=== PATIENT | male | born 1945 | race Caucasian/White ===

== ENCOUNTER → 2017-07-07 | Outpatient (CLI) | payer MEDICARE, OTHER ==
--- NOTE | 2017-07-07 16:55 | US ---
EXAMINATION TYPE: US abdomen limited DATE OF EXAM: 07/07/2017 COMPARISON: US 2009 CLINICAL HISTORY: R10.9 Abd pain. Right abdominal pain x years; prior trauma to abdomen from 70 ton [place] 1995; umbilical hernia repair; HT 5'5 and WT 233lbs EXAM MEASUREMENTS: Liver Length: 15.0 cm Gallbladder Wall: 0.2 cm CBD: 0.4 cm Right Kidney: 10.3 x 6.1 x 5.2 cm Pancreas: Tail obscured by overlying bowel gas Liver: fatty as is hyperechoic to right renal cortex Gallbladder: wnl Evidence for sonographic Beltran's sign: No CBD: wnl Right Kidney: No hydronephrosis or masses seen Aorta Upper: size is at upper limits of normal, but still < 3.0cm. IMPRESSION: 1. Unremarkable right upper quadrant abdomen ultrasound
== END | disposition home or self-care (01) ==
LOC: RADUSWWP 08:11
PROVIDERS: ATTEND Pediatrics
DX: R10.9 Unspecified abdominal pain (principal)
CPT/HCPCS: 76705

== ENCOUNTER → 2018-03-30 | Outpatient (CLI) | payer MEDICARE, OTHER ==
--- NOTE | 2018-03-30 14:25 | XR ---
EXAMINATION TYPE: XR shoulder complete LT DATE OF EXAM: 03/30/2018 COMPARISON: NONE HISTORY: Pain x1 week TECHNIQUE: Shoulder examined in 3 FINDINGS: The humeral head articulates with the glenoid. The acromio-clavicular junction is normal. No acute fractures or dislocations are evident. A follow up study can be performed 7-10 days from acute trauma for continued pain. IMPRESSION: 1. Normal Shoulder
== END | disposition home or self-care (01) ==
LOC: RADXRMAIN 11:48
PROVIDERS: ATTEND Pediatrics
DX: M25.512 Pain in left shoulder (principal)

== ENCOUNTER 2019-11-30 22:24 | Emergency (ER) | payer MEDICARE ==
[2019-11-30 22:30] VITALS: TEMP 98.8
--- NOTE | 2019-11-30 22:42 | ED ---
General Adult HPI - General Chief complaint: Neuro Symptoms/Deficit Stated complaint: Arm Numbness Time Seen by Provider: 11/30/19 22:33 Source: patient Mode of arrival: ambulatory Limitations: no limitations - History of Present Illness Initial comments: Dictation was produced using [employer] dictation software. please excuse any grammatical, word or spelling errors. This patient was cared for during a federal and state declared state of emergency secondary to Covid 19 Chief Complaint: 74-year-old male past medical history of hypertension dyslipidemia presents with left arm numbness. History of Present Illness: 74-year-old male who has past medical history of dyslipidemia and hypertension. He states that he's been having intermittent episodes of left arm numbness. He states that these episodes would occur after exerting his left upper extremity. He states that most recently he noted that his left hand and left upper extremity went completely numb after helping his friend move furniture. Patient states that he notices that it occurs intermittently whenever he uses arm. Patient denies any history of stroke. Patient reports that he does begin belching which would alleviate his symptoms. He has no history of peripheral vascular disease or stroke. Denies any weakness. Denies any difficulty ambulating. The ROS documented in this emergency department record has been reviewed and confirmed by me. Those systems with pertinent positive or negative responses have been documented in the HPI. All other systems are other negative and/or noncontributory. PHYSICAL EXAM: General Impression: Alert and oriented x3, not in acute distress HEENT: Normocephalic atraumatic, extra-ocular movements intact, pupils equal and reactive to light bilaterally, mucous membranes moist. Cardiovascular: Heart regular rate and rhythm, S1&S2 audible, no murmurs, rubs or gallops Chest: Lungs clear to auscultation bilaterally, no rhonchi, no wheeze, no rales Abdomen: Bowel sounds present, abdomen soft, non-tender, non-distended, no organomegaly Musculoskeletal: Pulses present and equal in all extremities, no peripheral edema Motor: no focal deficits noted Neurological: CN II-XII grossly intact, no focal motor or sensory deficits noted, NIH of 0 Skin: Intact with no visualized rashes Psych: Normal affect and mood ED course: 74-year-old male with past medical history of hypertension dyslipidemia presents with left arm numbness. Signs upon arrival are within acceptable limits.Computed tomography scan the brain is unremarkable. CT angios the chest is negative. CT angios the head and neck shows no acute processes. Acute abdominal series shows no acute processes. Chest x-ray is nonacute. Laboratory evaluation obtained. CBC, coag panel, metabolic panel is unremarkable. Patient reevaluated at bedside and found to be in stable medical condition. This point is unclear what is causing patient's symptoms. Given his comorbidities and his body habitus. He seems like patient that would suffer from peripheral vascular disease. More history was obtained from was at bedside. She states that she was concerned he was having a stroke. Considering the chronicity of his symptoms and that they've been ongoing for approximately 3 weeks intermittently believe that discharge is a reasonable disposition. Patient offered inpatient admission for further workup however considering we are currently in a endemic disaster situation is a state patient requested to be discharged. Patient given aspirin and Lipitor. He is told to follow up immediately with his primary care physician and to have further outpatient workup. Return parameters was discussed. Patient will be discharged. EKG interpretation: Ventricular rate 83, sinus rhythm, AL interval 140, QRS 82, QTC 420. No AL prolongation, no QTC prolongation, no ST or T-wave changes noted. No old EKG for comparison. Overall, this EKG is unremarkable - Related Data Home Medications Medication Instructions Recorded Confirmed Lisinopril-Hctz 10-12.5 mg 1 tab PO DAILY 11/30/19 11/30/19 [Zestoretic 10-12.5] Montelukast [Singulair] PO DAILY 11/30/19 Allergies Allergy/AdvReac Type Severity Reaction Status Date / Time No Known Allergies Allergy Verified 11/30/19 22:31 Review of Systems ROS Statement: Those systems with pertinent positive or pertinent negative responses have been documented in the HPI. ROS Other: All systems not noted in ROS Statement are negative. Past Medical History Past Medical History: Hyperlipidemia, Hypertension Additional Past Medical History / Comment(s): sinus problems, History of Any Multi-Drug Resistant Organisms: None Reported Past Surgical History: Hernia Repair Past Psychological History: No Psychological Hx Reported Smoking Status: Former smoker Past Alcohol Use History: None Reported Past Drug Use History: None Reported General Exam Limitations: no limitations Course Vital Signs 11/30/19 22:24 Temperature 98.8 F Pulse Rate 89 Respiratory 18 Rate Blood Pressure 133/62 O2 Sat by Pulse 96 Oximetry Medical Decision Making - Lab Data Result diagrams: 11/30/19 22:45 11/30/19 22:45 Lab Results 11/30/19 11/30/19 11/30/19 Range/Units 22:45 22:45 22:45 WBC 9.8 (3.8-10.6) k/uL RBC 5.21 (4.30-5.90) m/uL Hgb 16.0 (13.0-17.5) gm/dL Hct 46.9 (39.0-53.0) % MCV 90.1 (80.0-100.0) fL MCH 30.8 (25.0-35.0) pg MCHC 34.1 (31.0-37.0) g/dL RDW 12.8 (11.5-15.5) % Plt Count 266 (150-450) k/uL Neutrophils % 61 % Lymphocytes % 26 % Monocytes % 8 % Eosinophils % 3 % Basophils % 1 % Neutrophils # 6.0 (1.3-7.7) k/uL Lymphocytes # 2.5 (1.0-4.8) k/uL Monocytes # 0.8 (0-1.0) k/uL Eosinophils # 0.3 (0-0.7) k/uL Basophils # 0.1 (0-0.2) k/uL PT 9.6 (9.0-12.0) sec INR 0.9 (<1.2) APTT 23.5 (22.0-30.0) sec Sodium 137 (137-145) mmol/L Potassium 3.9 (3.5-5.1) mmol/L Chloride 106 (98-107) mmol/L Carbon Dioxide 24 (22-30) mmol/L Anion Gap 7 mmol/L BUN 23 H (9-20) mg/dL Creatinine 1.29 H (0.66-1.25) mg/dL Est GFR (CKD-EPI)AfAm 63 (>60 ml/min/1.73 sqM) Est GFR (CKD-EPI)NonAf 54 (>60 ml/min/1.73 sqM) Glucose 116 H (74-99) mg/dL Calcium 9.5 (8.4-10.2) mg/dL Magnesium 2.2 (1.6-2.3) mg/dL Disposition Clinical Impression: Arm numbness Disposition: HOME SELF-CARE Condition: Fair Instructions (If sedation given, give patient instructions): Stroke (DC) Additional Instructions: Today you are evaluated for strokelike symptoms. You had labs, CT of the brain, contrasted CT of the brain showing no obvious abnormalities. It is suggested to you to follow-up with her primary care physician as soon as possible for outpatient workup. Please understand that stroke only be ruled out with more advanced imaging thank you a likely candidate for outpatient. Please return to the emergency department or seek emergent medical care should you have a recurrence of the symptoms. Is patient prescribed a controlled substance at d/c from ED?: No Referrals: Javier Correa DO [Primary Care Provider] - 1-2 days Time of Disposition: 00:15
[2019-11-30 22:55] LABS: Basophils # (A) 0.1 k/uL (0-0.2); Basophils % (A) 1 %; Eosinophils # (A) 0.3 k/uL (0-0.7); Eosinophils % (A) 3 %; HCT 46.9 % (39.0-53.0); Lymphocytes # (A) 2.5 k/uL (1.0-4.8); Lymphocytes % (A) 26 %; MCH 30.8 pg (25.0-35.0); MCHC 34.1 g/dL (31.0-37.0); MCV 90.1 fL (80.0-100.0); Mean Platelet Volume 7.5; Monocytes # (A) 0.8 k/uL (0-1.0); Monocytes % (A) 8 %; Neutrophils % (A) 61 %; Platelet Count 266 k/uL (150-450); RBC 5.21 m/uL (4.30-5.90); RDW 12.8 % (11.5-15.5); WBC 9.8 k/uL (3.8-10.6)
[2019-11-30 23:09] LABS: Calcium 9.5 mg/dL (8.4-10.2); INR 0.9 (<1.2); Magnesium 2.2 mg/dL (1.6-2.3); Potassium 3.9 mmol/L (3.5-5.1)
[2019-11-30 23:10] LABS: Partial Thromboplastin Time 23.5 sec (22.0-30.0); Prothrombin Time 9.6 sec (9.0-12.0)
[2019-11-30] MEDS ORDERED: SODIUM CHLORIDE 0.9% 1,000 ML IV STA (23:10)
--- NOTE | 2019-11-30 23:51 | CT ---
EXAMINATION TYPE: CT brain wo con DATE OF EXAM: 11/30/2019 COMPARISON: None HISTORY: Arm numbness. CT DLP: 1095.4 mGycm Automated exposure control for dose reduction was used. There is some cerebral cortical atrophy. There is no mass effect nor midline shift. There is no sign of intracranial hemorrhage. The calvarium is intact. IMPRESSION: Cerebral atrophy. No acute intracranial abnormality.
--- NOTE | 2019-11-30 23:52 | XR ---
EXAMINATION TYPE: XR abdomen acute w cxr DATE OF EXAM: 11/30/2019 COMPARISON: 01/17/2012 HISTORY: Left arm numbness. Bulging. TECHNIQUE: 4 views FINDINGS: Heart and mediastinum are normal. Lungs are clear. Diaphragm is normal. Bony thorax appears normal. Bowel gas pattern is normal. There is no sign of intestinal obstruction or pneumoperitoneum. There ar e no pathologic calcifications over the kidneys. There are phleboliths in the pelvis. There is no duyen dence of a mass. IMPRESSION: Normal chest. Nonacute abdomen.
--- NOTE | 2019-12-01 00:02 | CT ---
EXAMINATION TYPE: CT angio head neck DATE OF EXAM: 11/30/2019 COMPARISON: None HISTORY: LUE numbness CT DLP: 709.4 mGycm Automated exposure control for dose reduction was used. CONTRAST: Performed with IV Contrast, patient injected with 65 mL of Isovue 370. Images were obtained from the aortic arch to the vertex of the brain with intravenous contrast. There are 3-D post processed images. There is normal branching pattern of the great vessels on the aortic arch. There is bilateral arteria l flow in the subclavian arteries. Ascending aorta measures 3.7 cm. There is no evidence of dissectio n. There is normal contrast opacification of the carotid and vertebral arteries. There is no evidence of carotid or vertebral artery aneurysm or dissection. There is wide patency of the carotid artery bifu rcations. There is arterial flow in the vertebrobasilar artery system. There is arterial flow in the anterior middle and posterior cerebral arteries. I see no sign of intra cranial aneurysm or neovascularity. There is no mass effect. There is normal contrast opacification o f the venous sinuses. IMPRESSION: Negative CT angiogram of the neck. Negative CT angiogram of the brain.
[2019-12-01] MEDS ORDERED: ASPIRIN 81 MG PO STA (00:05)
[2019-12-01] MEDS ORDERED: ATORVASTATIN 40 MG TAB PO STA (00:05)
--- NOTE | 2019-12-01 00:07 | CT ---
EXAMINATION TYPE: CT angio chest DATE OF EXAM: 11/30/2019 COMPARISON: HISTORY: LUE numbness CT DLP: 1057.3 mGycm Automated exposure control for dose reduction was used. CONTRAST: Performed with IV Contrast, patient injected with 60 mL of Isovue 370. There are 3-D post processed images. Thoracic aorta is intact. There is no aneurysm or dissection. The ascending aorta measures 3.7 cm. Th ere is no mediastinal adenopathy. There are no hilar masses. There is normal contrast opacification o f the pulmonary arteries. There are no filling defects. The lungs are clear of consolidation. There is no evidence of a pulmonary mass. There is no pleural e ffusion. There is no pericardial effusion. Heart size is normal. Upper abdominal soft tissues appear intact. The bony thorax appears intact. IMPRESSION: Negative exam. No evidence of pulmonary embolism.
[2019-12-01 00:33] VITALS: BP 133/76; PULSE 77; RESP 16
== END 2019-12-01 00:33 | disposition home or self-care (01) ==
LOC: EC 22:24
DX: R20.0 Anesthesia of skin (principal); I10 Essential (primary) hypertension; Z87.891 Personal history of nicotine dependence; Z79.899 Other long term (current) drug therapy; Z87.09 Personal history of other diseases of the respiratory system
CPT/HCPCS: 36415; 93005; 80048; 83735; 84484; 85025; 85610; 85730; 74022; 70496; 70450; 70498; 71275; 99284; Q9967

== ENCOUNTER 2019-12-24 04:45 | Inpatient (IN) | payer MEDICARE ==
[2019-12-24 05:17] LABS: Basophils # (A) 0.1 k/uL (0-0.2); Basophils % (A) 1 %; Eosinophils # (A) 0.2 k/uL (0-0.7); Eosinophils % (A) 3 %; HCT 45.5 % (39.0-53.0); HGB 15.5 gm/dL (13.0-17.5); Lymphocytes # (A) 1.7 k/uL (1.0-4.8); Lymphocytes % (A) 18 %; MCH 31.3 pg (25.0-35.0); MCHC 34.2 g/dL (31.0-37.0); MCV 91.8 fL (80.0-100.0); Mean Platelet Volume 7.8; Monocytes # (A) 0.5 k/uL (0-1.0); Monocytes % (A) 5 %; Neutrophils # (A) 6.6 k/uL (1.3-7.7); Neutrophils % (A) 72 %; Platelet Count 242 k/uL (150-450); RBC 4.95 m/uL (4.30-5.90); RDW 12.9 % (11.5-15.5); WBC 9.2 k/uL (3.8-10.6)
[2019-12-24 05:29] LABS: Albumin 3.8 g/dL (3.5-5.0); Calcium 9.3 mg/dL (8.4-10.2); Magnesium 2.1 mg/dL (1.6-2.3); Potassium 4.2 mmol/L (3.5-5.1); Total Bilirubin 0.3 mg/dL (0.2-1.3); Total Protein 6.5 g/dL (6.3-8.2)
--- NOTE | 2019-12-24 05:29 | XR ---
EXAMINATION TYPE: XR chest 2V DATE OF EXAM: 12/24/2019 COMPARISON: 11/30/2019 HISTORY: Left arm numbness. Chest pain TECHNIQUE: FINDINGS: Heart and mediastinum are normal. Lungs are clear of infiltrate. Costophrenic angles are cl ear. There are probably calcified granulomata at the pulmonary comfort. There is no pleural effusion. Yvon ny thorax is intact. IMPRESSION: No active cardiopulmonary disease. Normal heart. No change.
[2019-12-24 05:40] LABS: INR 0.9 (<1.2); Prothrombin Time 9.5 sec (9.0-12.0)
[2019-12-24 05:43] LABS: Partial Thromboplastin Time 19.7 sec (22.0-30.0)
[2019-12-24] MEDS ORDERED: HEPARIN SODIUM,PORCINE 5,000 UNIT/ML 1 ML VIAL IV PRN (06:10)
[2019-12-24] MEDS ORDERED: HEPARIN SODIUM,PORCINE 5,000 UNIT/ML 1 ML VIAL IV ONE (06:10)
--- NOTE | 2019-12-24 06:15 | ED ---
Chest Pain HPI - General Chief Complaint: Chest Pain Stated Complaint: CHEST PAIN Source: patient, EMS Mode of arrival: EMS Limitations: no limitations - History of Present Illness Initial Comments: The patient is a 74-year-old male past history of hypertension who presents to the emergency room with reported chest pain. He states he awoke from sleep at 3 AM with pain located over the right side of his chest. He states that it was crushing chest pain, graded 10 out of 10. He had associated diaphoresis and nausea. He also had significant gas with belching. The pain radiated to his right neck and right shoulder. He went to the bathroom to have a bowel movement and the pain improved. His did call EMS. They did provide him with 4 chewable aspirins, 1 sublingual nitro and 4 of Zofran. The patient reports to complete improvement by the time he arrives to the emergency department. He has no previous cardiac history. Has never had stress testing performed. Denies cough, fevers or chills. No hemoptysis. No numbness or tingling in his extremities. Denies any abdominal pain or changes in bowel or bladder habits. There are no other alleviating, precipitating or modifying factors - Related Data Home Medications Medication Instructions Recorded Confirmed Lisinopril-Hctz 10-12.5 mg 1 tab PO DAILY 11/30/19 11/30/19 [Zestoretic 10-12.5] Montelukast [Singulair] PO DAILY 11/30/19 Allergies Allergy/AdvReac Type Severity Reaction Status Date / Time No Known Allergies Allergy Verified 11/30/19 22:31 Review of Systems ROS Statement: Those systems with pertinent positive or pertinent negative responses have been documented in the HPI. ROS Other: All systems not noted in ROS Statement are negative. EKG Findings - EKG Comments: EKG Findings:: EKG demonstrates normal sinus rhythm with a ventricular rate of 60. VA interval 162. QRS 86. QTC 406. Low voltage. No acute ST segment elevations or depressions. Past Medical History Past Medical History: Hyperlipidemia, Hypertension Additional Past Medical History / Comment(s): sinus problems, History of Any Multi-Drug Resistant Organisms: None Reported Past Surgical History: Hernia Repair Past Psychological History: No Psychological Hx Reported Smoking Status: Former smoker Past Alcohol Use History: Rare Past Drug Use History: None Reported General Exam Limitations: no limitations Course Vital Signs 12/24/19 05:04 Temperature 97.6 F Pulse Rate 67 Respiratory 20 Rate Blood Pressure 142/89 O2 Sat by Pulse 97 Oximetry Chest Pain MDM - MDM Upon arrival the patient was placed into room 1. A thorough history and physical exam was performed. Laboratory studies were conducted. The EKG was performed which demonstrates no acute ST segment elevation. Patient is pain- free at this time. Laboratory studies demonstrate a glucose of 132. Troponin is 0.063. Carotid virus is not detected. Chest x-ray demonstrates no active cardio primary disease. I did review the patient's record and he has had a CT angiography of his chest which was done at the beginning of this month. I did discuss results of the patient. I did recommend heparinizing imports the patient did agree. Patient has no contraindications. The patient will be admitted to [facility]. I will consult cardiology. Patient is made nothing by mouth. He continues to remain pain-free and will be transferred to the floor in stable condition Disposition Clinical Impression: Acute non-ST elevation myocardial infarction (NSTEMI), Chest pain Disposition: ADMITTED IP TO THIS HOSP Condition: Stable Is patient prescribed a controlled substance at d/c from ED?: No Referrals: Javier Correa DO [Primary Care Provider] - 1-2 days Decision to Admit Reason: Admit from EC Decision Date: 12/24/19 Decision Time: 06:21
[2019-12-24] MEDS ORDERED: NALOXONE 0.4 MG/ML 1 ML VIAL IV PRN (06:22)
[2019-12-24] MEDS: HEPARIN SOD,PORK IN 0.45% NACL 25,000 UNIT in 0.45% NACL 1 250ML.BAG IV SCH (06:59)
[2019-12-24] MEDS ORDERED: ATORVASTATIN 80 MG TAB PO SCH (09:00)
--- NOTE | 2019-12-24 10:00 | ECHOF ---
Referral Reason:chest pain, elevated troponin MEASUREMENTS -------- HEIGHT: 165.1 cm WEIGHT: 104.3 kg BP: IVSd: 0.9 cm (0.6 - 1.1) LVIDd: 3.7 cm (3.9 - 5.3) LVPWd: 0.8 cm (0.6 - 1.1) IVSs: 0.9 cm LVIDs: 3.1 cm LVPWs: 0.8 cm Ao Diam: 2.8 cm (2.0 - 3.7) AV Cusp: 1.9 cm (1.5 - 2.6) LA Diam: 3.5 cm (2.7 - 3.8) MV EXCURSION: 10.065 mm (> 18.000) MV EF SLOPE: 110 mm/s (70 - 150) EPSS: 0.8 cm MV E Denis: 0.68 m/s MV DecT: 173 ms MV A Denis: 0.77 m/s MV E/A Ratio: 0.88 RAP: 5.00 mmHg RVSP: 12.51 mmHg FINDINGS -------- Sinus rhythm. This was a technically difficult study with suboptimal views. The left ventricular size is normal. Left ventricular wall thickness is normal. Overall left vent ricular systolic function is moderately impaired with, an EF between 35 - 40 %. Apical anterior LV wall motion is hypokinetic. Apical lateral LV wall motion is hypokinetic. Apical inferior LV wa ll motion is hypokinetic. Apical septum LV wall motion is hypokinetic. The right ventricle is normal in size. The left atrial size is normal. The right atrial size is normal. Lumason used The aortic valve is trileaflet and appears structurally normal. The mitral valve is normal. There is trace mitral regurgitation. The tricuspid valve appears structurally normal. Trace tricuspid regurgitation present. Right allan tricular systolic pressure is normal at < 35 mmHg. The pulmonic valve is normal. The aortic root size is normal. IVC Not well visulized. There is no pericardial effusion. CONCLUSIONS -------- 1. Sinus rhythm. 2. This was a technically difficult study with suboptimal views. 3. The left ventricular size is normal. 4. Left ventricular wall thickness is normal. 5. Overall left ventricular systolic function is moderately impaired with, an EF between 35 - 40 %. 6. Apical anterior LV wall motion is hypokinetic. 7. Apical lateral LV wall motion is hypokinetic. 8. Apical inferior LV wall motion is hypokinetic. 9. Apical septum LV wall motion is hypokinetic. 10. The right ventricle is normal in size. 11. The left atrial size is normal. 12. The right atrial size is normal. 13. Lumason used 14. The aortic valve is trileaflet and appears structurally normal. 15. The mitral valve is normal. 16. There is trace mitral regurgitation. 17. The tricuspid valve appears structurally normal. 18. Trace tricuspid regurgitation present. 19. Right ventricular systolic pressure is normal at < 35 mmHg. 20. The pulmonic valve is normal. 21. The aortic root size is normal. 22. IVC Not well visulized. 23. There is no pericardial effusion. [employer]: Zoe Gracia RDCS
[2019-12-24] MEDS ORDERED: NITROGLYCERIN SL TABS 0.4 MG TAB SUBLINGUAL PRN (10:15)
[2019-12-24] MEDS ORDERED: SODIUM CHLORIDE 0.9% 1,000 ML in EMPTY BAG 1 BAG IV ONE (10:15)
[2019-12-24] MEDS ORDERED: ALPRAZolam 0.5 MG TAB PO PRN (10:15)
[2019-12-24] MEDS ORDERED: ALPRAZolam 0.25 MG TAB PO PRN (10:15)
[2019-12-24] MEDS ORDERED: ATORVASTATIN 80 MG TAB PO STA (10:15)
[2019-12-24] MEDS ORDERED: ATORVASTATIN 80 MG TAB ONE (10:55)
[2019-12-24] MEDS ORDERED: METOPROLOL TARTRATE 12.5 MG TAB ONE (10:55)
[2019-12-24] MEDS ORDERED: ASPIRIN 81 MG ONE (10:55)
[2019-12-24] MEDS: ASPIRIN 81 MG PO SCH (11:10)
[2019-12-24] MEDS ORDERED: METOPROLOL TARTRATE 25 MG TAB ONE (11:13)
[2019-12-24] MEDS: METOPROLOL TARTRATE 25 MG TAB PO SCH ×2 (11:15→19:25)
--- NOTE | 2019-12-24 12:12 | P.HPIM ---
History of Present Illness 74-year-old pleasant gentleman with severe (aspirin 2 history of coronary artery disease came in with compensative chest been on the right side of the chest radiating to the jaw pressure-like sensation, 10/10 severity improves with b elching associated with shortness of breath lightheadedness as well as diaphoresis improved with sublingual nitroglycerin nonexertional chest pain not associated with food nonpleuritic in nature crushing and pressure-like chest pain never had any cardiac workup in the past denied any cough nausea vomiting. Patient does have history of gastroesophageal reflux disease his. Pain is not consistent with that patient denied any fever chills chest x-ray did not show any pneumonia EKG low voltage patient had mildly elevated troponin first one my echocardiogram showed apical anterior hypokinesis and apical lateral wall hypokinesis apical inferior hypokinesis with a decreased EF of 35-40% Review of Systems REVIEW OF SYSTEMS: CONSTITUTIONAL: No fever, no malaise, no fatigue. HEENT: No recent visual problems or hearing problems. Denied any sore throat. CARDIOVASCULAR: As mentioned in HPI PULMONARY: no cough, no hemoptysis. GASTROINTESTINAL: No diarrhea, no nausea, no vomiting, no abdominal pain. NEUROLOGICAL: No headaches, no weakness, no numbness. HEMATOLOGICAL: Denies any bleeding or petechiae. GENITOURINARY: Denies any burning micturition, frequency, or urgency. MUSCULOSKELETAL/RHEUMATOLOGICAL: Denies any joint pain, swelling, or any muscle pain. ENDOCRINE: Denies any polyuria or polydipsia. The rest of the 14-point review of systems is negative. Past Medical History Past Medical History: Hyperlipidemia, Hypertension Additional Past Medical History / Comment(s): sinus problems, History of Any Multi-Drug Resistant Organisms: None Reported Past Surgical History: Hernia Repair Past Psychological History: No Psychological Hx Reported Smoking Status: Former smoker Additional Past Alcohol Use History / Comment(s): Patient states that he qui9t smoking arounf 1966, he states an occasional beer with dinner. Patient lives with spouse and grandchildren Past Drug Use History: None Reported - Past Family History Father Family Medical History: Myocardial Infarction (DC) Mother Family Medical History: Cancer Medications and Allergies Home Medications Medication Instructions Recorded Confirmed Type Lisinopril-Hctz 10-12.5 mg 1 tab PO DAILY 11/30/19 12/24/19 History [Zestoretic 10-12.5] Montelukast [Singulair] 10 mg PO DAILY 11/30/19 12/24/19 History Multivitamins, Thera [Multivitamin 1 tab PO DAILY 12/24/19 12/24/19 History (formulary)] Kaufman-3 Fatty Acids/Fish Oil [Fish 1 cap PO DAILY 12/24/19 12/24/19 History Oil 1,000 mg Softgel] Allergies Allergy/AdvReac Type Severity Reaction Status Date / Time No Known Allergies Allergy Verified 12/24/19 07:25 Physical Exam Vitals: Vital Signs Temp Pulse Pulse Resp BP BP Pulse Ox 12/24/19 08:00 97.8 F 74 16 144/96 99 12/24/19 07:02 97.5 F L 68 19 138/97 97 12/24/19 05:04 97.6 F 67 20 142/89 97 Intake and Output 12/23/19 12/24/19 12/24/19 22:59 06:59 14:59 Intake Total 240 Balance 240 Intake: IV 240 .9 @ 20 240 Other: Weight 104.326 kg 104.326 kg PHYSICAL EXAMINATION: GENERAL: The patient is alert and oriented x3, not in any acute distress. Well developed, well nourished. HEENT: Pupils are round and equally reacting to light. EOMI. No scleral icterus. No conjunctival pallor. Normocephalic, atraumatic. No pharyngeal erythema. No thyromegaly. CARDIOVASCULAR: S1 and S2 present. No murmurs, rubs, or gallops. PULMONARY: Chest is clear to auscultation, no wheezing or crackles. ABDOMEN: Soft, nontender, nondistended, normoactive bowel sounds. No palpable organomegaly. MUSCULOSKELETAL: No joint swelling or deformity. EXTREMITIES: No cyanosis, clubbing, or pedal edema. NEUROLOGICAL: Gross neurological examination did not reveal any focal deficits. SKIN: No rashes. Results CBC & Chem 7: 12/24/19 05:00 12/24/19 05:00 Labs: Abnormal Lab Results - Last 24 Hours (Table) 12/24/19 12/24/19 12/24/19 Range/Units 05:00 05:00 05:00 APTT 19.7 L (22.0-30.0) sec Chloride 109 H (98-107) mmol/L BUN 25 H (9-20) mg/dL Glucose 132 H (74-99) mg/dL Troponin I 0.063 H* (0.000-0.034) ng/mL Thrombosis Risk Factor Assmnt - Choose All That Apply Any of the Below Risk Factors Present?: Yes Each Factor Represents 1 point: Obesity (BMI >25) Other Risk Factors: Yes Each Risk Factor Represents 2 Points: Age 61-74 years Other congenital or acquired thrombophilia - If yes, enter type in comment: No Thrombosis Risk Factor Assessment Total Risk Factor Score: 3 Thrombosis Risk Factor Assessment Level: Moderate Risk Assessment and Plan Plan: -Possible non-ST elevation myocardial infarction: Continue with IV heparin patient undergo cardiac catheterization tomorrow patient probably has involvement of left anterior descending. -Acute systolic dysfunction from possible acute myocardial infarction patient is not in heart failure exacerbation at this time, patient appears to be fairly euvolemic by his GALEN inhibitor will be resumed -Hyperlipidemia -Hypertension -Obesity patient will benefit from outpatient sleep study
[2019-12-24] MEDS: LISINOPRIL 10 MG TAB PO SCH (17:27)
[2019-12-24 23:07] LABS: Hemoglobin A1C 5.6 % (4.0-6.0)
[2019-12-25 06:52] LABS: Basophils # (A) 0.1 k/uL (0-0.2); Basophils % (A) 1 %; Eosinophils # (A) 0.2 k/uL (0-0.7); Eosinophils % (A) 2 %; HCT 44.5 % (39.0-53.0); HGB 14.5 gm/dL (13.0-17.5); Lymphocytes # (A) 1.6 k/uL (1.0-4.8); Lymphocytes % (A) 18 %; MCHC 32.7 g/dL (31.0-37.0); Mean Platelet Volume 7.5; Monocytes # (A) 0.6 k/uL (0-1.0); Monocytes % (A) 7 %; Neutrophils # (A) 6.1 k/uL (1.3-7.7); Neutrophils % (A) 71 %; Platelet Count 198 k/uL (150-450); RBC 4.69 m/uL (4.30-5.90); RDW 13.2 % (11.5-15.5); WBC 8.5 k/uL (3.8-10.6)
[2019-12-25 07:06] LABS: Partial Thromboplastin Time 27.1 sec (22.0-30.0)
[2019-12-25] MEDS: LISINOPRIL 10 MG TAB PO SCH (07:10)
[2019-12-25] MEDS: ATORVASTATIN 80 MG TAB PO SCH (07:10)
[2019-12-25] MEDS: METOPROLOL TARTRATE 25 MG TAB PO SCH ×2 (07:11→21:01)
[2019-12-25] MEDS: ASPIRIN 81 MG PO SCH (07:11)
[2019-12-25 07:17] LABS: Calcium 9.2 mg/dL (8.4-10.2); Potassium 5.1 mmol/L (3.5-5.1)
[2019-12-25] MEDS ORDERED: LIDOCAINE 1% INJ 10MG/ML (20 ML MDV) ONE (07:20)
[2019-12-25] MEDS ORDERED: VERAPAMIL 2.5 MG/ML 2 ML AMP ONE (07:21)
[2019-12-25] MEDS ORDERED: IV FLUID CONTINUATION 900 ML IV ONE (07:29)
[2019-12-25] MEDS ORDERED: fentaNYL (PF) 50 MCG/ML 2 ML AMP ONE (07:32)
[2019-12-25] MEDS ORDERED: fentaNYL (PF) 50 MCG/ML 2 ML AMP IV ONE (07:36)
[2019-12-25] MEDS: MIDAZOLAM 2 MG/2 ML VIAL IV ONE ×2 (07:36→08:41)
[2019-12-25] MEDS ORDERED: LIDOCAINE 1% INJ 10MG/ML (20 ML MDV) SQ ONE (07:38)
[2019-12-25] MEDS ORDERED: HEPARIN SODIUM 1,000 UN/ML (10ML VL) ONE (07:44)
[2019-12-25] MEDS: VERAPAMIL SYRINGE (5 MG/10 ML) INTRAARTER ONE ×2 (07:45→09:02)
[2019-12-25] MEDS ORDERED: HEPARIN SODIUM 1,000 UN/ML (10ML VL) IV ONE (07:46)
[2019-12-25] MEDS ORDERED: BIVALIRUDIN BOLUS 250 MG/50 ML IV ONE (08:15)
[2019-12-25] MEDS ORDERED: CLOPIDOGREL 75 MG TAB ONE (08:15)
[2019-12-25] MEDS ORDERED: BIVALIRUDIN 250 MG in SODIUM CHLORIDE 0.9% 50 ML IV ONE (08:15)
[2019-12-25] MEDS ORDERED: CLOPIDOGREL 75 MG TAB PO ONE (08:18)
[2019-12-25] MEDS ORDERED: IOPAMIDOL-370 125ML BTL INJ ONE ×2 (08:27→09:01)
[2019-12-25] MEDS ORDERED: niCARdipine 25 MG/10 ML VIAL ONE (08:33)
[2019-12-25] MEDS: niCARdipine Syringe (1,000 mcg/10 mL) INTRACORON ONE ×2 (08:35→08:40)
[2019-12-25] MEDS: NITROGLYCERIN 1000MCG/10ML SYRINGE INTRACORON ONE ×3 (08:35→08:54)
--- NOTE | 2019-12-25 08:37 | P.CARDCATH ---
Date of Procedure: 12/25/19 Preoperative Diagnosis: NON-STEMI Postoperative Diagnosis: TOTAL OCCLUSION OF THE MID LAD Procedure(s) Performed: Left heart catheterization without left ventriculography Description of Procedure: HISTORY: This is a 74-year-old gentleman with history of hypertension who was admitted to the hospital with the complaints of chest pain and evidence of non- STEMI. Patient is advised to have a cardiac catheterization for definitive diagnosis. No prior history of ischemic heart disease. CONSENT:I have discussed the risks, benefits and alternative therapies for the above-mentioned procedure and for both sedation/analgesia as well as necessary blood product administration, if indicated, as they pertain to this patient. The patient has indicated understanding and acceptance of the risks and procedures discussed. PROCEDURE: Patient was brought to the lab in a fasting state. Patient was given some IV sedation. The right wrist is infiltrated with lidocaine and right radial artery was entered using Seldinger technique. A 6-Luxembourgish catheter was left in place and selective coronary arteriography was performed. Patient tolerated the procedure well. TR band was applied for hemostasis. No immediate complications were noted and patient was transferred to [facility] in a stable condition Conscious Sedation: Versed 1 mg mg Fentanyl 25 g Duration 18 minutes HEMODYNAMICS: The aortic pressure is about 120/70. Left ventricular end- diastolic pressure was not measured SELECTIVE CORONARY ARTERIOGRAPHY: LEFT MAIN: This a normal length and free of occlusive disease THE LEFT ANTERIOR DESCENDING CORONARY ARTERY: . This is a moderate caliber vessel which is totally occluded after the septal branch. The distal LAD is seen by faint flow THE LEFT CIRCUMFLEX AND IS CORONARY ARTERY: This is a dominant vessel and free of any significant occlusive disease THE RIGHT CORONARY ARTERY: . This is a nondominant vessel free of occlusive disease LEFT VENTRICULOGRAPHY: . PERFORMED FINAL IMPRESSION: Total occlusion of mid LAD. The rest of the coronary system is free of occlusive disease PLAN: . Stent placement of the LAD to be done by Dr. Streeter PROGNOSIS: Guarded
[2019-12-25] MEDS: HEPARIN SOD,PORK IN 0.45% NACL 25,000 UNIT in 0.45% NACL 1 250ML.BAG IV SCH (08:49)
[2019-12-25] MEDS ORDERED: RX INFO: IV CONTRAST WAS GIVEN 1 EACH MISC MISCELLANE PRN (09:15)
[2019-12-25] MEDS ORDERED: ZOLPIDEM 5 MG TAB PO PRN (09:15)
[2019-12-25] MEDS ORDERED: ATROPINE SULFATE 0.1 MG/ML 10ML SYRINGE IV PRN (09:15)
[2019-12-25] MEDS ORDERED: SODIUM CHLORIDE 0.9% 1,000 ML IV SCH (09:15)
[2019-12-25] MEDS ORDERED: MAG HYDROX/AL HYDROX/SIMETH 30 ML CUP PO PRN (09:15)
[2019-12-25] MEDS ORDERED: NITROGLYCERIN SL TABS 0.4 MG TAB SUBLINGUAL PRN (09:15)
--- NOTE | 2019-12-25 09:31 | P.PCN ---
Date of Procedure: 12/25/19 Operative Findings: PERCUTANEOUS CORONARY INTERVENTION Performing physician Moe Baig M.D. Procedure performed 1. Aspiration thrombectomy from the left anterior descending artery using the export catheter with the extraction of multiple small red thrombus 2. Successful stenting a very complex mid left anterior descending artery (LAD) using 2.0 x 8 mm Braham RAIN, 2.25 x 18 mm Xience RAIN, and 3.0 x 23 mm Xience RAIN with an excellent angiographic results and reduction of stenosis from 100% to 0% and without any complication Indication This is a 74-year-old gentleman who was admitted to the hospital with a chest discomfort and ruled in for acute non-ST elevation myocardial infarction. He underwent a heart catheterization by Dr. Yost and was found to have acute total occlusion of the LAD. Approach Right radial artery Complication None Level of sedation Moderate sedation length of 52 minutes Procedure description Please refer to the diagnostic heart catheterization was performed by Dr. Yost earlier today. Anticoagulation was initiated using Angiomax with bolus and drip per protocol. Subsequently I did engage the left main using an XB 3 guide. Initially I tried to engage the left main using JL 3.5 guide for the guide did not sit coaxial to the left main. And because of that I decided to switch to XB 3 guide. Subsequently I was able to cross the total occlusion of the mid LAD using a whisper J-wire. I had some difficulties crossing the lesion with a wire. After that I did balloon angioplasty using 2.5 x 12 mm balloon and with that I was unable to achieve any flow in the LAD. Subsequently I decided to do aspiration thrombectomy which I did using the export catheter. I was able to extract multiple small red clots. After the aspiration thrombectomy and was able to achieve some flow in the LAD. After that I did balloon angioplasty again using the same 2.5 x 12 mm balloon. The balloon was inflated multiple times in the mid LAD under 12 danis for 15 seconds each time. I did give the patient's IC nitroglycerin as well as IC nicardipine. In the mid LAD I decided to place 2 stents because of different sizing. In the mid to distal LAD I placed 2.25 x 18 mm Xience RAIN where the stent was positioned under fluoroscopy guidance and deployed under 12 danis for 20 seconds. In the proximal to mid LAD I placed 3.0 x 23 mm Xience RAIN where the stent was positioned under fluoroscopy guidance as well and deployed under 12 danis for 20 seconds. The area of overlap between the 2 stents was dilated using the stent balloon. The following angiogram showed that there is a focal spot at the distal edge of the distal stent which seems to be concerning and because of that I decided to cover that area with a stent. I attempted advancing 2.0 x 8 mm Braham RAIN but the stent won't cross the mid LAD across previously stent. Because of that I decided to wire the LAD using a jennifer wire which was at this time a whisper wire. With that I was able to advance 2.0 x 8 mm stent to the distal LAD where the stent was positioned under fluoroscopy guidance and deployed under 12 danis for 20 seconds. The final angiogram showed excellent angiographic results and the procedure was completed without any complication Postprocedure management 1. Dual antiplatelet therapy 2. Risk factors modifications 3. Aggressive cholesterol control 4. Anti-ischemic medications 5. Follow-up with the patient
--- NOTE | 2019-12-25 11:17 | P.PN ---
Subjective 74-year-old pleasant gentleman came in for non-ST elevation microinfarction. Patient underwent cardiac catheterization and stenting of LAD patient received 3 stents to LAD. Patient had acute systolic dysfunction from microinfarction patient is not in heart failure exacerbation. Patient is presently receiving IV fluids because of the contrast patient doesn't have any JVD. Patient feels better Constitutional: Denied any fatigue denied any fever. Cardio vascular: denied any chest pain, palpitations Gastrointestinal denied any nausea vomiting Pulmonary: Denied any shortness of breath cough Neurologic denied any new focal deficits All inpatient medications were reviewed and appropriate changes in these medications as dictated in the interval history and assessment and plan. Objective - Vital Signs Vital signs: Vital Signs Temp 98.1 F 12/25/19 04:00 Pulse 67 12/25/19 11:00 Resp 16 12/25/19 04:00 BP 97/63 12/25/19 11:00 Pulse Ox 93 L 12/25/19 11:00 Intake & Output 12/24/19 12/25/19 12/25/19 18:59 06:59 18:59 Intake Total 240 220.831 256 Output Total 380 Balance 240 -159.169 256 Weight 104.326 kg 103 kg Intake: IV 240 181 .9 @ 20 240 Intake, IV Titration 220.831 75 Amount Heparin Sod,Pork in 0.45% 220.831 NaCl 25,000 unit In 0.45 % NaCl 1 250ml.bag @ 9.6 UNITS/KG/HR 10.015 mls/hr IV .Q24H [facility] Rx#: [id number] Sodium Chloride 0.9% 1, 75 000 ml @ 75 mls/hr IV . [id number] [facility] Rx#:[id number] Output: Urine 380 Other: Voiding Method Toilet # Voids 1 - Exam PHYSICAL EXAMINATION: GENERAL: The patient is alert and oriented x3, not in any acute distress. Obese HEENT: Pupils are round and equally reacting to light. EOMI. No scleral icterus. No conjunctival pallor. Normocephalic, atraumatic. No pharyngeal erythema. No thyromegaly. CARDIOVASCULAR: S1 and S2 present. No murmurs, rubs, or gallops. PULMONARY: Chest is clear to auscultation, no wheezing or crackles. ABDOMEN: Soft, nontender, nondistended, normoactive bowel sounds. No palpable organomegaly. MUSCULOSKELETAL: No joint swelling or deformity. EXTREMITIES: No cyanosis, clubbing, or pedal edema. NEUROLOGICAL: Gross neurological examination did not reveal any focal deficits. SKIN: No rashes. - Labs CBC & Chem 7: 12/25/19 06:40 12/25/19 06:40 Labs: Abnormal Lab Results - Last 24 Hours (Table) 12/24/19 12/24/19 12/24/19 Range/Units 12:42 12:42 16:24 APTT 44.2 H (22.0-30.0) sec Chloride (98-107) mmol/L Glucose (74-99) mg/dL Troponin I 4.700 H* 7.710 H* (0.000-0.034) ng/mL Triglycerides (<150) mg/dL LDL Cholesterol, Calc (0-99) mg/dL 12/24/19 12/25/19 Range/Units 20:09 06:40 APTT 49.8 H (22.0-30.0) sec Chloride 108 H (98-107) mmol/L Glucose 126 H (74-99) mg/dL Troponin I (0.000-0.034) ng/mL Triglycerides 159 H (<150) mg/dL LDL Cholesterol, Calc 100 H (0-99) mg/dL Assessment and Plan Plan: -Acute non-ST elevation myocardial infarction: Patient had cardiac catheterizati on and stenting of LAD, patient is on beta nirmal and GALEN inhibitor, statin and dual antiplatelet therapy -Acute systolic dysfunction from possible acute myocardial infarction patient is not in heart failure exacerbation at this time, patient appears to be fairly euvolemic by his GALEN inhibitor was resumed because of low blood pressure and cutting down the dose -Ruled out diabetes mellitus -Hyperlipidemia -Hypertension -Obesity patient will benefit from outpatient sleep study
--- NOTE | 2019-12-25 12:58 | P.CRDCN ---
<Livier Long - Last Filed: 12/24/19 10:24> History of Present Illness History of present illness: This is Livier Long PA-C scribing on behalf of Dr. Nieves The patient was interviewed and examined by Dr. Nieves HPI Patient is a 74-year-old male with a history of hypertension who presented with complaints of chest discomfort. Patient was in the hospital a few weeks ago with complaints of left arm numbness. Workup for stroke was negative. Last night he woke up with severe chest pain. It started in the right side of his abdomen and went up into the right side of his chest and neck. He had associated nausea and diaphoresis. Denies any shortness of breath. No dizziness or syncope. EMS was called and he was given nitro glycerin. This pain resolved within 1 minute. Upon arrival to the emergency department he was pain-free. EKG did not show any acute ST segment or T-wave abnormalities. His troponin was mildly elevated at 0.063. He was admitted for further evaluation and management. Today he still has a vague discomfort in the right side of his chest. No other symptoms. ROS: No fevers, chills or rigors, no cough, phlegm or expectoration, Positive for nausea, no vomiting or diarrhea no hematuria, dysuria, no musculoskeletal complaints, no strokes or seizures, no skin lesions. EXAMINATION: Patient is afebrile, pulse in 70s, respirations 16, blood pressure 142/96, oxygen saturation 99% on [address] Nieves examined the patient Lungs are clear to auscultation bilaterally, no respiratory distress Heart sounds are soft, normal S1-S2, no audible murmurs No JVD No lower extremity edema Abdomen soft and nontender to palpation REVIEW OF LABS, ECG & MEDICAL DATA WBC 9.2, hemoglobin 15.5, platelets 242, potassium 4.2, BUN 25, creatinine 1.16 Troponin 0.063 IMPRESSION / ASSESSMENT: Non-Q-wave myocardial infarction, Right sided chest discomfort relieved by nitroglycerin, abnormal cardiac enzymes, no acute changes on EKG, Hypertension PLAN: obtain 2-D echo and Doppler studies Start low-dose metoprolol, atorvastatin 80 mg daily, and aspirin 81 mg daily plan for cardiac catheterization Past Medical History Past Medical History: Hyperlipidemia, Hypertension Additional Past Medical History / Comment(s): sinus problems, History of Any Multi-Drug Resistant Organisms: None Reported Past Surgical History: Hernia Repair Past Psychological History: No Psychological Hx Reported Smoking Status: Former smoker Additional Past Alcohol Use History / Comment(s): Patient states that he qui9t smoking arounf 1966, he states an occasional beer with dinner. Patient lives with spouse and grandchildren Past Drug Use History: None Reported - Past Family History Father Family Medical History: Myocardial Infarction ([place]) Mother Family Medical History: Cancer Medications and Allergies Home Medications Medication Instructions Recorded Confirmed Type Lisinopril-Hctz 10-12.5 mg 1 tab PO DAILY 11/30/19 12/24/19 History [Zestoretic 10-12.5] RX: Montelukast [Singulair] 10 mg PO DAILY 11/30/19 12/24/19 History Multivitamins, Thera [Multivitamin 1 tab PO DAILY 12/24/19 12/24/19 History (formulary)] [place]-3 Fatty Acids/Fish Oil [Fish 1 cap PO DAILY 12/24/19 12/24/19 History Oil 1,000 mg Softgel] Allergies Allergy/AdvReac Type Severity Reaction Status Date / Time No Known Allergies Allergy Verified 12/24/19 07:25 Physical Exam Vitals: Vital Signs Temp Pulse Pulse Resp BP BP Pulse Ox 12/24/19 08:00 97.8 F 74 16 144/96 99 12/24/19 07:02 97.5 F L 68 19 138/97 97 12/24/19 05:04 97.6 F 67 20 142/89 97 Intake and Output 12/23/19 12/24/19 12/24/19 22:59 06:59 14:59 Intake Total 240 Balance 240 Intake: IV 240 .9 @ 20 240 Other: Weight 104.326 kg 104.326 kg Results 12/24/19 05:00 12/24/19 05:00 Cardiac Enzymes 12/24/19 12/24/19 Range/Units 05:00 05:00 AST 23 (17-59) U/L Troponin I 0.063 H* (0.000-0.034) ng/mL Coagulation 12/24/19 Range/Units 05:00 PT 9.5 (9.0-12.0) sec APTT 19.7 L (22.0-30.0) sec CBC 12/24/19 Range/Units 05:00 WBC 9.2 (3.8-10.6) k/uL RBC 4.95 (4.30-5.90) m/uL Hgb 15.5 (13.0-17.5) gm/dL Hct 45.5 (39.0-53.0) % Plt Count 242 (150-450) k/uL Comprehensive Metabolic Panel 12/24/19 Range/Units 05:00 Sodium 140 (137-145) mmol/L Potassium 4.2 (3.5-5.1) mmol/L Chloride 109 H (98-107) mmol/L Carbon Dioxide 23 (22-30) mmol/L BUN 25 H (9-20) mg/dL Creatinine 1.16 (0.66-1.25) mg/dL Glucose 132 H (74-99) mg/dL Calcium 9.3 (8.4-10.2) mg/dL AST 23 (17-59) U/L ALT 19 (4-49) U/L Alkaline Phosphatase 116 (38-126) U/L Total Protein 6.5 (6.3-8.2) g/dL Albumin 3.8 (3.5-5.0) g/dL Current Medications Generic Name Dose Route Start Last Admin Trade Name Freq PRN Reason Stop Dose Admin Aspirin 81 mg 12/24/19 09:00 Aspirin PO DAILY [facility] Atorvastatin Calcium 80 mg 12/24/19 09:00 Lipitor PO DAILY [facility] Heparin Sodium (Porcine) 0 unit 12/24/19 06:10 Heparin IV PER PROTOCOL PRN Low PTT Protocol Heparin Sodium/Sodium Chloride 250 mls @ 10.015 mls/hr 12/24/19 06:15 12/24/19 06:59 25,000 unit/ Sodium Chloride IV 9.6 units/kg/hr .Q24H [facility] 10.015 mls/hr Administration Protocol 9.6 UNITS/KG/HR Metoprolol Tartrate 25 mg 12/24/19 09:00 Lopressor PO BID [facility] Naloxone HCl 0.2 mg 12/24/19 06:22 Narcan IV Q2M PRN Opioid Reversal Intake and Output 12/23/19 12/24/19 12/24/19 22:59 06:59 14:59 Intake Total 240 Balance 240 Intake: IV 240 .9 @ 20 240 Other: Weight 104.326 kg 104.326 kg Patient Weight 12/25/19 06:59 Weight 104.326 kg 12/24/19 05:00 12/24/19 05:00 <Osorio Nieves - Last Filed: 12/25/19 12:55> Physical Exam Vitals: Vital Signs Temp Pulse Resp BP Pulse Ox 12/25/19 11:00 67 97/63 93 L 12/25/19 10:30 56 L 99/72 12/25/19 10:00 59 L 98/69 12/25/19 09:45 59 L 99/71 12/25/19 09:30 66 97/60 94 L 12/25/19 04:00 98.1 F 77 16 135/90 98 12/25/19 00:00 98.1 F 70 18 127/84 98 12/24/19 19:48 16 12/24/19 19:46 97.1 F L 73 16 141/96 97 12/24/19 16:00 77 18 131/84 97 Intake and Output 12/24/19 12/25/19 12/25/19 22:59 06:59 14:59 Intake Total 220.831 492 Output Total 380 Balance -159.169 492 Intake: IV 181 Intake, IV Titration 220.831 75 Amount Heparin Sod,Pork in 0.45% 220.831 NaCl 25,000 unit In 0.45 % NaCl 1 250ml.bag @ 9.6 UNITS/KG/HR 10.015 mls/hr IV .Q24H [facility] Rx#: [id number] Sodium Chloride 0.9% 1, 75 000 ml @ 75 mls/hr IV . [id number] [facility] Rx#:[id number] Oral 236 Output: Urine 380 Other: Voiding Method Toilet Toilet # Voids 1 Weight 103 kg Results 12/25/19 06:40 12/25/19 06:40 Cardiac Enzymes 12/24/19 12/24/19 Range/Units 12:42 16:24 Troponin I 4.700 H* 7.710 H* (0.000-0.034) ng/mL Coagulation 12/24/19 12/24/19 12/25/19 Range/Units 12:42 20:09 06:40 PT 10.0 (9.0-12.0) sec APTT 44.2 H 49.8 H 27.1 (22.0-30.0) sec Lipids 12/25/19 Range/Units 06:40 Triglycerides 159 H (<150) mg/dL Cholesterol 178 (<200) mg/dL HDL Cholesterol 46 (40-60) mg/dL CBC 12/25/19 Range/Units 06:40 WBC 8.5 (3.8-10.6) k/uL RBC 4.69 (4.30-5.90) m/uL Hgb 14.5 (13.0-17.5) gm/dL Hct 44.5 (39.0-53.0) % Plt Count 198 (150-450) k/uL Comprehensive Metabolic Panel 12/25/19 Range/Units 06:40 Sodium 138 (137-145) mmol/L Potassium 5.1 (3.5-5.1) mmol/L Chloride 108 H (98-107) mmol/L Carbon Dioxide 27 (22-30) mmol/L BUN 18 (9-20) mg/dL Creatinine 1.01 (0.66-1.25) mg/dL Glucose 126 H (74-99) mg/dL Calcium 9.2 (8.4-10.2) mg/dL Current Medications Generic Name Dose Route Start Last Admin Trade Name Freq PRN Reason Stop Dose Admin Al Hydroxide/Mg Hydroxide 30 ml 12/25/19 09:15 Maalox PO Q4HR PRN Heartburn Alprazolam 0.25 mg 12/24/19 10:15 Xanax PO Q6HR PRN Mild Anxiety Alprazolam 0.5 mg 12/24/19 10:15 Xanax PO Q6HR PRN Moderate Anxiety Aspirin 81 mg 12/24/19 09:00 12/25/19 07:11 Aspirin PO 81 mg DAILY [facility] Administration Atorvastatin Calcium 80 mg 12/25/19 09:00 12/25/19 07:10 Lipitor PO 80 mg DAILY [facility] Administration Atropine Sulfate 0.5 mg 12/25/19 09:15 Atropine IV ONCE PRN Symptomatic Bradycardia Clopidogrel Bisulfate 75 mg 12/26/19 09:00 Plavix PO DAILY [facility] Heparin Sodium (Porcine) 0 unit 12/24/19 06:10 Heparin IV PER PROTOCOL PRN Low PTT Protocol Heparin Sodium/Sodium Chloride 250 mls @ 10.015 mls/hr 12/24/19 06:15 12/25/19 08:49 25,000 unit/ Sodium Chloride IV Not Given .Q24H [facility] Protocol 9.6 UNITS/KG/HR Sodium Chloride 1,000 mls @ 75 mls/hr 12/25/19 09:15 Saline 0.9% IV 12/25/19 15:16 .[id number] [facility] Lisinopril 5 mg 12/26/19 09:00 Zestril PO DAILY [facility] Metoprolol Tartrate 25 mg 12/24/19 09:00 12/25/19 07:11 Lopressor PO 25 mg BID [facility] Administration Miscellaneous Information 1 each 12/25/19 09:15 Rx Info: Iv Contrast Was Given MISCELLANE 12/27/19 09:15 DAILY PRN Per Protocol Naloxone HCl 0.2 mg 12/24/19 06:22 Narcan IV Q2M PRN Opioid Reversal Nitroglycerin 0.4 mg 12/24/19 10:15 Nitrostat SUBLINGUAL Q5M PRN Chest Pain Nitroglycerin 0.4 mg 12/25/19 09:15 Nitrostat SUBLINGUAL Q5M PRN Chest Pain Zolpidem Tartrate 5 mg 12/25/19 09:15 Ambien PO HS PRN Insomnia Intake and Output 12/24/19 12/25/19 12/25/19 22:59 06:59 14:59 Intake Total 220.831 492 Output Total 380 Balance -159.169 492 Intake: IV 181 Intake, IV Titration 220.831 75 Amount Heparin Sod,Pork in 0.45% 220.831 NaCl 25,000 unit In 0.45 % NaCl 1 250ml.bag @ 9.6 UNITS/KG/HR 10.015 mls/hr IV .Q24H [facility] Rx#: [id number] Sodium Chloride 0.9% 1, 75 000 ml @ 75 mls/hr IV . [id number] [facility] Rx#:[id number] Oral 236 Output: Urine 380 Other: Voiding Method Toilet Toilet # Voids 1 Weight 103 kg 12/25/19 06:40 12/25/19 06:40
[2019-12-25 14:01] VITALS: BMI 37.8
[2019-12-26 06:38] LABS: Basophils # (A) 0.1 k/uL (0-0.2); Basophils % (A) 1 %; Eosinophils # (A) 0.2 k/uL (0-0.7); Eosinophils % (A) 3 %; HCT 41.9 % (39.0-53.0); HGB 13.6 gm/dL (13.0-17.5); Lymphocytes # (A) 1.5 k/uL (1.0-4.8); Lymphocytes % (A) 17 %; MCH 30.7 pg (25.0-35.0); MCHC 32.5 g/dL (31.0-37.0); MCV 94.3 fL (80.0-100.0); Mean Platelet Volume 7.7; Monocytes # (A) 0.7 k/uL (0-1.0); Monocytes % (A) 9 %; Neutrophils % (A) 70 %; Platelet Count 220 k/uL (150-450); RBC 4.44 m/uL (4.30-5.90); RDW 13.3 % (11.5-15.5); WBC 8.6 k/uL (3.8-10.6)
[2019-12-26 06:54] LABS: Prothrombin Time 10.2 sec (9.0-12.0)
[2019-12-26 07:05] LABS: African American GFR (CKD) >90 (>60 ml/min/1.73 sqM); Non-African American GFR(CKD) 84 (>60 ml/min/1.73 sqM)
[2019-12-26] MEDS: HEPARIN SOD,PORK IN 0.45% NACL 25,000 UNIT in 0.45% NACL 1 250ML.BAG IV SCH (08:02)
[2019-12-26] MEDS: ASPIRIN 81 MG PO SCH (08:39)
[2019-12-26] MEDS: LISINOPRIL 5 MG TAB PO SCH (08:39)
[2019-12-26] MEDS: CLOPIDOGREL 75 MG TAB PO SCH (08:39)
[2019-12-26] MEDS: ATORVASTATIN 80 MG TAB PO SCH (08:39)
[2019-12-26] MEDS: METOPROLOL TARTRATE 25 MG TAB PO SCH ×2 (08:39→20:23)
--- NOTE | 2019-12-26 12:48 | P.PN ---
Subjective Progress Note Date: 12/26/19 This is a 74-year-old male with history of hypertension who initially presented to the hospital with a non-Q-wave myocardial infarction. He was taken to the cardiac catheterization lab yesterday, underwent stenting of the LAD.the patient was seen and examined this morning, denied any chest discomfort and his breathing was stable. Right radial site was clean and dry, good distal pulse. Echocardiogram with Doppler study revealed an ejection fraction of 35-40%.apical anterior, lateral, inferior, and septal wall hypokinesia noted. Blood pressure 120/70 with a heart rate in the 80s, 96% on room air.White blood cell count 8.6, hemoglobin 13.6, platelet count 220. He has been up ambulating around his room this morning, asymptomatic. Objective - Vital Signs Vital signs: Vital Signs Temp 98.3 F 12/26/19 08:00 Pulse 80 12/26/19 08:00 Resp 16 12/26/19 04:00 BP 121/76 12/26/19 08:00 Pulse Ox 96 12/26/19 08:00 Intake & Output 12/25/19 12/26/19 12/26/19 18:59 06:59 18:59 Intake Total 1332 500 100 Output Total 400 Balance 1332 500 -300 Weight 103 kg 102.8 kg Intake: IV 181 Intake, IV Titration 675 Amount Sodium Chloride 0.9% 1, 675 000 ml @ 75 mls/hr IV . [id number] Rx#:[id number] Oral 476 500 100 Output: Urine 400 Other: Voiding Method Toilet # Voids 1 1 - Exam PHYSICAL EXAMINATION: GENERAL:74-year-old gentleman in no acute distress at the time of my examination HEENT: Head is atraumatic, normocephalic. Pupils equal, round. Sclera anicteric. Conjunctiva are clear. Mucous membranes of the mouth are moist. Neck is supple. There is no elevated jugular venous pressure. No carotid bruit is heard. HEART EXAMINATION: [Heart S1, S2 normal. No murmur or gallop heard.] CHEST EXAMINATION:[ Lungs are clear to auscultation and precussion. No chest wall tenderness is noted on palpation or with deep breathing.] ABDOMEN: [ Soft, nontender. Bowel sounds are heard. No organomegaly noted]. EXTREMITIES:[ 2+ peripheral pulses with no evidence of peripheral edema and no calf tenderness noted]. Right radial site clean and dry, good distal pulse. NEUROLOGIC [patient is awake, alert and oriented X3] . - Labs CBC & Chem 7: 12/26/19 05:51 12/26/19 05:51 Assessment and Plan Plan: assessment and plan #1 non-ST elevation myocardial infarction, status post angioplasty and stenting of the LAD #2 hypertension #3 hyperlipidemia #4 former smoker #5 ischemic cardiomyopathy with documented ejection fraction of 35-40%. Plan Echocardiogram with Doppler study revealed an ejection fraction of 35-40%. Apical anterior, lateral, inferior, and septal hypokinesia noted. We will start the patient on some Aldactone,continue baby aspirin, Lipitor 80, Plavix 75 mg daily, lisinopril 5 mg daily, and metoprolol 25 twice a day.plan for possible discharge home in 24 hours if stable. DNP note has been reviewed, I agree with a documented findings and plan of care. Patient was seen and examined.
[2019-12-26] MEDS ORDERED: SPIRONOLACTONE 25 MG TAB PO SCH (13:00)
[2019-12-26 13:18] LABS: African American GFR (CKD) >90 (>60 ml/min/1.73 sqM); Anion Gap 4 mmol/L; Blood Urea Nitrogen 16 mg/dL (9-20); Calcium 8.8 mg/dL (8.4-10.2); Carbon Dioxide 26 mmol/L (22-30); Chloride 107 mmol/L (98-107); Glucose 94 mg/dL (74-99); Non-African American GFR(CKD) 82 (>60 ml/min/1.73 sqM); Sodium 137 mmol/L (137-145)
--- NOTE | 2019-12-26 14:21 | P.PN ---
Subjective Progress Note Date: 12/26/19 Principal diagnosis: 74-year-old pleasant gentleman came in for non-ST elevation myocardial infarction. Patient underwent cardiac catheterization and stenting of LAD patient received 3 stents to LAD. Patient had acute systolic dysfunction from myocardial infarction patient is not in heart failure exacerbation. Patient is presently receiving IV fluids because of the contrast patient doesn't have any JVD. Patient feels better Constitutional: Denied any fatigue denied any fever. Cardio vascular: denied any chest pain, palpitations Gastrointestinal denied any nausea vomiting Pulmonary: Denied any shortness of breath cough Neurologic denied any new focal deficits 12/26/2019 Patient is seen and evaluated and follow-up status post cardiac catheterization with stenting of the LAD. Cardiology following. Patient's most recent echo showing overall left ventricular systolic function is moderately impaired with an EF between 35 and 40%. Patient being initiated on Aldactone. Currently no reports of chest pain, shortness of breath, or palpitations. Patient is afebrile. No reports of nausea or vomiting and patient is tolerating diet. Patient states he has been up walking in the room and to the bathroom with no difficulties. Objective - Vital Signs Vital signs: Vital Signs Temp 98.3 F 12/26/19 08:00 Pulse 80 12/26/19 08:00 Resp 16 12/26/19 04:00 BP 121/76 12/26/19 08:00 Pulse Ox 96 12/26/19 08:00 Intake & Output 12/25/19 12/26/19 12/26/19 18:59 06:59 18:59 Intake Total 1332 500 100 Output Total 400 Balance 1332 500 -300 Weight 103 kg 102.8 kg Intake: IV 181 Intake, IV Titration 675 Amount Sodium Chloride 0.9% 1, 675 000 ml @ 75 mls/hr IV . [id number] [facility] Rx#:[id number] Oral 476 500 100 Output: Urine 400 Other: Voiding Method Toilet # Voids 1 1 - Exam GENERAL: The patient is alert and oriented x3, not in any acute distress. Obese HEENT: Pupils are round and equally reacting to light. EOMI. No scleral icterus. No conjunctival pallor. Normocephalic, atraumatic. No pharyngeal erythema. No thyromegaly. CARDIOVASCULAR: S1 and S2 present. No murmurs, rubs, or gallops. PULMONARY: Chest is clear to auscultation, no wheezing or crackles. ABDOMEN: Soft, nontender, nondistended, normoactive bowel sounds. No palpable organomegaly. MUSCULOSKELETAL: No joint swelling or deformity. EXTREMITIES: No cyanosis, clubbing, or pedal edema. NEUROLOGICAL: Gross neurological examination did not reveal any focal deficits. SKIN: No rashes. - Labs CBC & Chem 7: 12/26/19 05:51 12/26/19 05:51 Assessment and Plan Assessment: -Acute non-ST elevation myocardial infarction: Patient underwent cardiac catheterization and stenting of LAD, patient is on beta nirmal and GALEN inhibitor, statin and dual antiplatelet therapy. Cardiology following. -Acute systolic dysfunction from possible acute myocardial infarction patient is not in heart failure exacerbation at this time, patient appears to be fairly euvolemic. Patient being initiated on Aldactone 25 mg daily. -Ruled out diabetes mellitus -Hyperlipidemia; patient initiated on atorvastatin -Hypertension; Patient remains on lisinopril and dose has been decreased to 5 mg daily. -Obesity patient will benefit from outpatient sleep study
--- NOTE | 2019-12-26 16:07 | CDI ---
Documentation Clarification Form Date: 12/26/2019 03:56:08 PM From: Verenice Gu RN, CCDS Admit Date: 12/24/2019 06:24:00 AM Patient Name: Leon Baez Visit Number: [id number] ATTENTION: The Clinical Documentation Specialists (CDI) and [facility] Coding Staff appreciate your assistance in clarifying documentation. Please respond to the clarification below the line at the bottom and electronically sign. The CDI & [facility] Coding staff will review the response and follow-up if needed. Please note: Queries are made part of the Legal Health Record. If you have any questions, please contact the author of this message via ITS. Dr. Priya Mariee Patients receiving COVID-19 screening must have documentation of results in the medical record. Patient history/risk factors: HTN, Former smoker Clinical Indicators: Chief Complaint: Chest pain, SOB, lightheadedness, diaphoresis 12/23 CXR:"No active cardiopulmonary disease. Normal heart. No change." Labs: WNL ABGs: not done 12/23 Coronavirus (PCR) Negative 12/24/2019 Vital Signs: Temp 97.6, HR 67, RR 20, B/P 142/89, Spo2 97% 2L NC Treatment: 0.9%NS @ 75 cc/hr In order to capture the severity of condition, please clarify if the above treatment/clinical indicators signify: COVID-19 ruled out Other, please specify (Last Form Revision: October 2019) Unfortunately we cannot document a very Covid testing that was done I do not have any suspicion for Covid on this patient because of his that was not documented please do not ask me to document every Covid test that was done 3 is just test is being done every patient, he will only be dictated if it's relevant in mental MTDD
[2019-12-27 06:18] LABS: Basophils # (A) 0.1 k/uL (0-0.2); Basophils % (A) 1 %; Eosinophils # (A) 0.3 k/uL (0-0.7); Eosinophils % (A) 3 %; HCT 44.8 % (39.0-53.0); HGB 13.8 gm/dL (13.0-17.5); Lymphocytes # (A) 1.7 k/uL (1.0-4.8); Lymphocytes % (A) 20 %; MCH 29.3 pg (25.0-35.0); MCHC 30.7 g/dL (31.0-37.0); MCV 95.6 fL (80.0-100.0); Mean Platelet Volume 7.5; Monocytes # (A) 0.7 k/uL (0-1.0); Monocytes % (A) 9 %; Neutrophils # (A) 5.5 k/uL (1.3-7.7); Neutrophils % (A) 66 %; Platelet Count 220 k/uL (150-450); RBC 4.69 m/uL (4.30-5.90); RDW 13.3 % (11.5-15.5); WBC 8.4 k/uL (3.8-10.6)
[2019-12-27 06:28] LABS: Prothrombin Time 10.1 sec (9.0-12.0)
[2019-12-27 06:31] LABS: Calcium 9.4 mg/dL (8.4-10.2); Potassium 5.2 mmol/L (3.5-5.1)
[2019-12-27] MEDS: ASPIRIN 81 MG PO SCH (08:50)
[2019-12-27] MEDS: ATORVASTATIN 80 MG TAB PO SCH (08:50)
[2019-12-27] MEDS: LISINOPRIL 5 MG TAB PO SCH (08:50)
[2019-12-27] MEDS: METOPROLOL TARTRATE 25 MG TAB PO SCH (08:50)
[2019-12-27] MEDS: CLOPIDOGREL 75 MG TAB PO SCH (08:51)
[2019-12-27 08:53] VITALS: TEMP 97.7
[2019-12-27] MEDS ORDERED: SPIRONOLACTONE 25 MG TAB PO SCH (09:00)
[2019-12-27] MEDS ORDERED: METOPROLOL SUCCINATE (ER) 50 MG TAB.ER.24H PO STA (09:30)
[2019-12-27 11:48] VITALS: BP 117/75; PULSE 66; RESP 18
--- NOTE | 2019-12-27 12:02 | P.PN ---
<Livier Long - Last Filed: 12/27/19 10:00> Subjective This is Livier Long PA-C scribing on behalf of Dr. Nieves The patient was interviewed and examined by Dr. Nieves HPI/interval history Patient is a 74-year-old male with a history of hypertension who presented with a non-Q-wave DE. He underwent stenting to the LAD. He was found to have ischemic cardiomyopathy and was initiated spironolactone yesterday. Patient is doing well today. Denies any chest pain. EXAMINATION Patient is afebrile, pulse in the 80s, respirations 16, blood pressure 137/86, oxygen saturation 94% on room air Dr. Nieves examined the patient Heart is regular, no audible murmurs Lungs clear to auscultation bilaterally REVIEW OF LABS, ECG WBC 8.4, hemoglobin 13.8, platelets 220, potassium 5.2, BUN 16, creatinine 1 LDL 100 No arrhythmias on telemetry IMPRESSION / ASSESSMENT: Non-Q-wave DE, status post angioplasty and stenting to the LAD Hypertension Dyslipidemia Former smoker Ischemic cardiomyopathy, EF 35-40% Hyperkalemia PLAN: Reduce spironolactone to 12.5 mg daily Continue dual antiplatelet therapy and statins Switch to long-acting metoprolol succinate 50 mg daily Continue lisinopril 5 mg daily in the evening to avoid hypotension Patient may be discharged home from a cardiac standpoint and follow-up in the office outpatient Objective - Vital Signs Vital signs: Vital Signs Temp 98.2 F 12/27/19 04:00 Pulse 75 12/27/19 04:00 Resp 16 12/27/19 04:00 BP 104/68 12/27/19 04:00 Pulse Ox 95 12/27/19 04:00 Intake & Output 12/26/19 12/27/19 12/27/19 18:59 06:59 18:59 Intake Total 580 240 Output Total 400 1200 Balance 180 -1200 240 Weight 102.6 kg Intake: Oral 580 240 Output: Urine 400 1200 Other: Voiding Method Toilet # Voids 3 # Bowel Movements 1 - Labs CBC & Chem 7: 12/27/19 05:17 12/27/19 05:17 Labs: Abnormal Lab Results - Last 24 Hours (Table) 05/01/20 05/01/20 Range/Units 05:17 05:17 MCHC 30.7 L (31.0-37.0) g/dL Potassium 5.2 H (3.5-5.1) mmol/L Carbon Dioxide 31 H (22-30) mmol/L <Osorio Nieves - Last Filed: 12/27/19 12:02> Objective - Vital Signs Vital signs: Vital Signs Temp 97.7 F 12/27/19 08:40 Pulse 66 12/27/19 11:45 Resp 18 12/27/19 11:45 BP 117/75 12/27/19 11:45 Pulse Ox 95 12/27/19 11:45 Intake & Output 12/26/19 12/27/19 12/27/19 18:59 06:59 18:59 Intake Total 580 240 Output Total 400 1200 Balance 180 -1200 240 Weight 102.6 kg Intake: Oral 580 240 Output: Urine 400 1200 Other: Voiding Method Toilet Toilet # Voids 3 # Bowel Movements 1 - Labs CBC & Chem 7: 12/27/19 05:17 12/27/19 05:17 Labs: Abnormal Lab Results - Last 24 Hours (Table) 12/27/19 12/27/19 Range/Units 05:17 05:17 MCHC 30.7 L (31.0-37.0) g/dL Potassium 5.2 H (3.5-5.1) mmol/L Carbon Dioxide 31 H (22-30) mmol/L
--- NOTE | 2019-12-27 12:41 | P.DS ---
Providers Date of admission: 12/24/19 06:24 Expected date of discharge: 12/27/19 Attending physician: Dorian Sanchez Consults: 12/24/19 06:23 Consult Physician Urgent Consulting Provider: Lola Slaughter Consult Reason/Comments: acute chest pain, NSTEMI Do you want consulting provider notified?: Yes 12/25/19 09:15 Consult Physician Routine Consulting Provider: Lola Slaughter Consult Reason/Comments: Post Interventional patient Do you want consulting provider notified?: Already Contacted Primary care physician: Javier Correa Hospital Course: Final diagnosis -Acute non-ST elevation myocardial infarction status post cardiac catheterization and stenting of LAD -Acute systolic dysfunction from possible acute myocardial infarction patient is not in heart failure exacerbation at this time -Ruled out diabetes mellitus -Covid 19 ruled out -Hyperlipidemia -Hypertension -Obesity Discharge disposition Patient is being discharged in a stable condition with guarded prognosis to home. Patient will follow-up with Dr. Correa in the outpatient setting upon discharge. Patient also instructed to follow-up with cardiology Dr. Nieves in the outpatient setting in 1 week as scheduled. Total time taken is 35 minutes. History of present illness This is a 74-year-old male who came in and was admitted with acute non-ST segment elevation myocardial infarction and was being closely monitored. Cardiology following closely. Patient underwent cardiac catheterization with stenting of the LAD. Patient instructed to follow-up with cardiology Dr. Nieves in the outpatient setting as scheduled in one week. Patient was initiated on Aldactone as most recent echo shows overall left ventricular systolic function is mildly impaired with ejection fraction showing 35-40 % and will continue on 12.5 mg daily. Patient will also continue on his lisinopril although doses been decreased to 5 mg daily. Currently patient denies any chest pain, shortness of breath, or palpitations. Patient is afebrile. No reports of nausea or vomiting and patient is tolerating diet. She will be discharged today. On exam vital signs are stable. Temp is 97.7 F, pulse is 66, respirations are 18, blood pressure is 117/75 and oxygen saturation is 95% on room air. Cardio S1, S2 are present. Respiratory system shows diminished breath sounds at the bases no wheezing or rhonchi noted. Abdomen is soft and nontender. Nervous system shows no focal deficits. Please refer to medication reconciliation sheet for a list of medications. Patient Condition at Discharge: Stable Plan - Discharge Summary Discharge Rx Participant: Yes New Discharge Prescriptions: New Spironolactone [Aldactone] 12.5 mg PO DAILY #90 tab Aspirin 81 mg PO DAILY chew Atorvastatin [Lipitor] 80 mg PO DAILY #90 tab Nitroglycerin Sl Tabs [Nitrostat] 0.4 mg SUBLINGUAL Q5M PRN #25 tab PRN Reason: Chest Pain Clopidogrel [Plavix] 75 mg PO DAILY #90 tab Lisinopril [Zestril] 5 mg PO DAILY #90 tab Metoprolol Tartrate [Lopressor] 25 mg PO BID 30 Days #60 tab Continue Montelukast [Singulair] 10 mg PO DAILY [place]-3 Fatty Acids/Fish Oil [Fish Oil 1,000 mg Softgel] 1 cap PO DAILY Multivitamins, Thera [Multivitamin (formulary)] 1 tab PO DAILY Discontinued Lisinopril-Hctz 10-12.5 mg [Zestoretic 10-12.5] 1 tab PO DAILY Discharge Medication List Montelukast [Singulair] 10 mg PO DAILY 11/30/19 [History] Multivitamins, Thera [Multivitamin (formulary)] 1 tab PO DAILY 12/24/19 [History] [place]-3 Fatty Acids/Fish Oil [Fish Oil 1,000 mg Softgel] 1 cap PO DAILY 12/24/19 [History] Aspirin 81 mg PO DAILY chew 12/27/19 [Rx] Atorvastatin [Lipitor] 80 mg PO DAILY #90 tab 12/27/19 [Rx] Clopidogrel [Plavix] 75 mg PO DAILY #90 tab 12/27/19 [Rx] Lisinopril [Zestril] 5 mg PO DAILY #90 tab 12/27/19 [Rx] Metoprolol Tartrate [Lopressor] 25 mg PO BID 30 Days #60 tab 12/27/19 [Rx] Nitroglycerin Sl Tabs [Nitrostat] 0.4 mg SUBLINGUAL Q5M PRN #25 tab 12/27/19 [Rx] Spironolactone [Aldactone] 12.5 mg PO DAILY #90 tab 12/27/19 [Rx] Follow up Appointment(s)/Referral(s): Osorio Nieves MD [STAFF PHYSICIAN] - 01/03/20 2:30 pm (follow up with Dr. Nieves/Livier Long/Urmila Veras in one week) Javier Correa DO [Primary Care Provider] - 1-2 days Patient Instructions/Handouts: Heart Catheterization (DC) Activity/Diet/Wound Care/Special Instructions: Activity Limited until follow-up Continue current diet Follow-up with primary care provider upon discharge Avoid increased oral potassium through diet follow-up with cardiology as discussed and scheduled Discharge Disposition: HOME SELF-CARE
[2019-12-27] MEDS ORDERED: METOPROLOL TARTRATE 25 MG TAB PO SCH (21:00)
[2019-12-28] MEDS ORDERED: METOPROLOL SUCCINATE (ER) 50 MG TAB.ER.24H PO SCH (09:00)
== END 2019-12-27 12:47 | disposition home or self-care (01) | DRG 247 ==
LOC: EC 04:45 → 3SCARD 06:24
PROVIDERS: ADMIT Hospitalist; ATTEND Hospitalist
PROC: 4A023N7 Measurement of Cardiac Sampling and Pressure, Left Heart, Percutaneous Approach (ICD-10-PCS; principal; 2019-12-25 07:00)
PROC: B2111ZZ Fluoroscopy of Multiple Coronary Arteries using Low Osmolar Contrast (ICD-10-PCS; principal; 2019-12-25 07:00)
PROC: 027036Z Dilation of Coronary Artery, One Artery with Three Drug-eluting Intraluminal Devices, Percutaneous Approach (ICD-10-PCS; principal; 2019-12-25 07:00)
PROC: 02C03ZZ Extirpation of Matter from Coronary Artery, One Artery, Percutaneous Approach (ICD-10-PCS; principal; 2019-12-25 07:00)
DX: I21.4 Non-ST elevation (NSTEMI) myocardial infarction (principal); I25.10 Atherosclerotic heart disease of native coronary artery without angina pectoris; I25.5 Ischemic cardiomyopathy; E66.9 Obesity, unspecified; Z68.37 Body mass index [BMI] 37.0-37.9, adult; E78.5 Hyperlipidemia, unspecified; E87.5 Hyperkalemia; I10 Essential (primary) hypertension; Z79.899 Other long term (current) drug therapy; Z82.49 Family history of ischemic heart disease and other diseases of the circulatory system; Z87.891 Personal history of nicotine dependence; Z20.828 Contact with and (suspected) exposure to other viral communicable diseases
CPT/HCPCS: 36415; 71046; 80048; 80053; 80061; 82565; 83036; 83690; 83735; 84484; 85025; 85610; 85730; 87635; 93005; 93306; 93454; 96365; 96376; 99285